=== PATIENT | male | born 1970 | race Caucasian/White ===

== ENCOUNTER 2022-08-08 09:04 | Emergency (ER) | payer BC, SELFPAY ==
--- NOTE | 2022-08-08 09:12 | ED.DENTAL ---
HPI - Dental/Oral General Chief complaint: Dental/Oral Stated complaint: Mouth, Left Ear Pain Time Seen by Provider: 08/08/22 09:11 Source: patient Mode of arrival: ambulatory Limitations: no limitations History of Present Illness HPI Narrative: Mr. Juarez is a 52-year-old male patient presenting to the clinic today with complaints of mouth/dental pain to the left side x1 week. He reports he seen the dentist on Wednesday and had his upper tooth fixed. Has pain to the left mid jaw that is radiating up into the ear. He denies any fever or chills. He discussed this with the dentist and the dentist did not feel at that time that he needed any antibiotics. Related Data Home Medications Medication Instructions Recorded Confirmed cyanocobalamin (vitamin B-12) 500 500 mcg intranasal POST-TRANSFUSION 08/08/22 08/08/22 mcg/spray nasal spray (Nascobal) duloxetine 60 mg capsule,delayed 60 mg PO DAILY 08/08/22 08/08/22 release pantoprazole 40 mg tablet,delayed 40 mg PO DAILY 08/08/22 08/08/22 release Allergies Allergy/AdvReac Type Severity Reaction Status Date / Time No Known Allergies Allergy Verified 08/08/22 09:25 Review of Systems Review of Systems: Pertinent positives per HPI. Patient denies any fever, chills, rash, headache, visual changes, dizziness, cough, runny nose, sore throat, shortness of breath, chest pain, palpitations, nausea, vomiting, diarrhea, constipation, abdominal pain, or any urinary issues. PMFSH Comments At the time of my signature, I reviewed and agree with the nursing past medical, surgical, social, and family history. There is no relevant family history pertinent to the patient complaint. Exam Narrative: General: Well-developed, well nourished, in no apparent distress Head: Normocephalic, atraumatic Eyes: Pupils equally round and reactive to light bilaterally, EOM intact, sclera and conjunctive clear, no discharge, lids normal Ears: TMs intact and clear, ear canals clear, no drainage, grossly hearing normal. Nose: Nares patent, no discharge, no inflammation, no sinus tenderness. Mouth: Oropharynx without lesions or masses, good dentition, MMM. Mild tenderness to palpation over the left mid jaw without induration or erythremia, no dental pain with palpation of the left upper and lower teeth Neck: Supple, trachea midline, no enlargement of anterior or posterior cervical nodes, no thyroid masses or goiter palpable. Cardio: Regular rate and rhythm, s1 and s2 normal, no murmur appreciated. Resp: Clear to auscultation bilaterally anteriorly and posteriorly, no rhonchi, rales, wheezing or rubs Course Course Emergency Course: Portions of this record may have been created with voice recognition software. Level of Care: Express Care Visit Vital Signs Vital signs: Vital Signs Temperature 37.2 C 08/08/22 09:16 Pulse Rate 82 08/08/22 09:16 Respiratory Rate 16 08/08/22 09:16 Blood Pressure 148/100 H 08/08/22 09:16 Pulse Oximetry 100 08/08/22 09:16 Oxygen Delivery Room Air 08/08/22 09:16 Temperature 37.2 C 08/08/22 09:16 Pulse Rate 82 08/08/22 09:16 Respiratory Rate 16 08/08/22 09:16 Blood Pressure 148/100 H 08/08/22 09:16 Pulse Oximetry 100 08/08/22 09:16 Oxygen Delivery Room Air 08/08/22 09:16 Vital signs reviewed MDM - Dental/Oral MDM Narrative Medical decision making narrative: At the time of visit patient is resting comfortably on the exam table. I suspect the patient has left mid jaw pain. TMJs were within normal limits. This may be caused by a blocked salivary duct or just inflammation within the jaw. Palpated upper and lower teeth to the left side of his mouth without any discomfort. Supportive measures were discussed with the understanding of discharge instructions. Toradol 60 mg IM given in the clinic today for pain. Differential Diagnosis Differential diagnosis: Likely dental caries, toothache, dental abscess, fracture of tooth an
[2022-08-08 09:16] VITALS: BP 148/100; PULSE 82; RESP 16; TEMP 37.2; O2SAT 100
[2022-08-08] MEDS: KETOROLAC (*BKC) 60 MG/2 ML VIAL IM (09:32)
== END 2022-08-08 09:40 | disposition home or self-care (01) ==
PROVIDERS: Emergency Provider Nurse Practitioner Family; PCP Family Medicine Sports Medicine
DX: R68.84 Jaw pain (principal); E78.00 Pure hypercholesterolemia, unspecified; I10 Essential (primary) hypertension; K21.9 Gastro-esophageal reflux disease without esophagitis; Z98.84 Bariatric surgery status; M19.90 Unspecified osteoarthritis, unspecified site; Z96.653 Presence of artificial knee joint, bilateral; Z96.643 Presence of artificial hip joint, bilateral
CPT/HCPCS: 96372; 99213; G0463; J1885